=== PATIENT | male | born 1960 | race Caucasian/White ===

== ENCOUNTER → 2017-05-24 | Emergency (ER) | payer OTHER ==
[~2017-05-24] VITALS: Ht 152.4 cm; Wt 74.8 kg
[~2017-05-24] MED LIST: NIFEDIPINE ER30 M1 PO
== END | disposition home or self-care (01) ==
LOC: ER 22:51
DX: I10 Essential (primary) hypertension (principal); R51 Headache

== ENCOUNTER 2020-07-27 18:03 | Emergency (ER) | payer OTHER ==
[~2020-07-27] VITALS: Ht 152.4 cm; Wt 77.1 kg
[2020-07-27] MEDS ORDERED: NIFEDIPINE20 MG (18:07)
[2020-07-27] MEDS ORDERED: GLUMETZA500 MG (18:07)
== END 2020-07-27 22:33 | disposition home or self-care (01) ==
LOC: ER 18:03
DX: K29.70 Gastritis, unspecified, without bleeding (principal)